=== PATIENT | female | born 1950 | race Caucasian/White ===

== ENCOUNTER 2016-10-27 09:30 | Inpatient (IN) | payer MEDICARE, OTHER ==
[~2016-10-27] VITALS: Ht 165 cm; Wt 56.0 kg
[2016-10-28 04:07] LABS: HCT 34.3 % (37.0-47.0); HGB 11.6 g/dl (12.5-16.0); MCH 32.2 pg (25.0-31.0); MCHC 33.8 g/dL (32.0-36.0); MCV 95.3 fL (78.0-100.0); RBC 3.6 M/uL (4.20-5.40); RDW 12.4 % (11.5-14.0); WBC 8.6 K/uL (4.0-10.5)
[2016-10-28 04:22] LABS: CREATININE 0.6 mg/dL (0.5-1.0); POTASSIUM 4.1 mmol/L (3.5-5.1)
--- NOTE | 2016-10-28 05:22 | NUR ---
PT C/O CHEST PAIN, BUT RESOLVED BY THE TIME THIS SAID RUSHED TO ROOM. MD NOTIFIED AT 0516-ORDERED 12 LEAD EKG, DILAUDID 0.5MG IVP X1 DOSE, AND TROPONIN ADDED TO THIS AM LABS. PT RESTING IN BED WITH MODERATE PAIN TO RT SHOULDER. POLAR PACK APPLIED TO RT SHOULDER. MODERATE SWELLING NOTED, PT REQUESTING TO TAKE ARM OUT OF SLING/SWATHE. PT WAS ADVISED NOT TO. VITALS WERE TAKEN: BP 166/88 HR 93 RR 18 T 98.2 ORAL SAO2 96% PER 2.5LNC
--- NOTE | 2016-10-28 05:32 | NUR ---
EKG OBTAINED : NORMAL ECG, RESULTS FAXED TO [facility]ITAL[facility].
[2016-10-29 05:33] LABS: HGB 10.5 g/dl (12.5-16.0); MCH 32.2 pg (25.0-31.0); MCHC 33.9 g/dL (32.0-36.0); MCV 95.1 fL (78.0-100.0); RBC 3.26 M/uL (4.20-5.40); RDW 12.3 % (11.5-14.0); WBC 6.7 K/uL (4.0-10.5)
[2016-10-29 05:57] LABS: CREATININE 0.5 mg/dL (0.5-1.0); POTASSIUM 4.2 mmol/L (3.5-5.1)
== END 2016-10-29 16:30 | disposition home or self-care (01) | DRG 483 ==
LOC: FMS 09:30
PROVIDERS: Internal Medicine; ADMIT Legal Medicine
PROC: 0RRK00Z Replacement of Left Shoulder Joint with Reverse Ball and Socket Synthetic Substitute, Open Approach (ICD-10-PCS; principal; 2016-10-27 09:00)
DX: M19.011 Primary osteoarthritis, right shoulder (principal); J44.9 Chronic obstructive pulmonary disease, unspecified; I10 Essential (primary) hypertension; K22.70 Barrett's esophagus without dysplasia; K21.9 Gastro-esophageal reflux disease without esophagitis; Z22.322 Carrier or suspected carrier of Methicillin resistant Staphylococcus aureus; F17.210 Nicotine dependence, cigarettes, uncomplicated
CPT/HCPCS: 36415; 73020; 80048; 84484; 86850; 86900; 86901; 87640; 87641; 87900; 88304; 88311; 93005; 94010; 94762; 97110; 97162; 97166; 97530-GP; 97535; C1713; C1776; J0697; J1170; J1885; J2270; J2405; J2704; J2710; J2795; J3010